=== PATIENT | male | born 1990 | race Caucasian/White ===

== ENCOUNTER 2017-11-09 13:01 | Emergency (ER) | payer OTHER ==
[~2017-11-09] VITALS: Ht 185.4 cm; Wt 108.9 kg
[2017-11-09 13:15] VITALS: BP 161/87
--- NOTE | 2017-11-09 13:20 | PCM.EKG ---
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
--- NOTE | 2017-11-09 13:22 | ER.PDOC ---
General Chief Complaint: Extremities Stated Complaint: HURT TOE Time seen by MD: 13:17 Source: patient Exam Limitations: no limitations History of Present Illness Initial Comments Right toe pain for weeks Severity: moderate Modifying Factors: pain on movement Allergies: Coded Allergies: No Known Allergies (Unverified , 11/09/17) Past Medical History Medical History: no pertinent history Surgical History: no surgical history Social History Smoking: chew Alcohol Use: occassionally Drug Use: none Review of Systems Constitutional: no symptoms reported EENTM: no symptoms reported Respiratory: no symptoms reported Cardiovascular: no symptoms reported Gastrointestinal: no symptoms reported Musculoskeletal: see HPI All Other Systems: Reviewed and Negative Physical Exam General Appearance: Alert, No Apparent Distress Foot: tenderness (right 1st ingrown toenail at the lateral aspect with discharge) Ankle: nml inspection, non-tender, nml ROM, no joint swelling, skin intact Gait: limited by pain Neuro: sensation nml, motor nml Vascular: no vascular compromise Tendons: tendon function nml Leg/Knee/Thigh: uninjured above ankle Head/ENT: nml inspection, pharynx nml Neck/Back: nml inspection, non-tender Resp/CVS: no resp distress Abdomen: non-tender, no organomegaly EKG/XRAY/CT/US EKG Comments: Normal Course Sepsis Screening Results: Posi: POSITIVE SEPSIS RISK Vitals & review Data Vital Sign - Last 24 Hours 11/09/17 11/09/17 11/09/17 13:10 13:10 13:15 Temp 98.7 98.7 98.7 Pulse 92 92 92 Resp 18 B/P (MAP) 161/87 (111) Pulse Ox 98 98 O2 Delivery Room Air Room Air Departure Time of Disposition: 13:20 Disposition: 01 HOME, SELF-CARE Impression: Primary Impression: Ingrowing nail with infection Condition: Stable Additional Instructions: Bactrim DS Ibuprofen F/U with Dr. Gomez this week. Call for appointment. Duration or Time Spent with Pa: 20 mins GA ETIENNE MD Nov 09, 2017 13:22
[2017-11-09 13:27] VITALS: BP 161/87
== END 2017-11-09 13:25 | disposition home or self-care (01) ==
LOC: ER 13:01
DX: L60.0 Ingrowing nail (principal); F17.220 Nicotine dependence, chewing tobacco, uncomplicated
CPT/HCPCS: 93005; 99283

== ENCOUNTER 2018-01-21 11:45 | Emergency (ER) | payer OTHER ==
[~2018-01-21] VITALS: Ht 185.4 cm; Wt 113.4 kg
[2018-01-21 11:59] VITALS: BP 159/85
--- NOTE | 2018-01-21 11:59 | ER.PDOC ---
General Chief Complaint: Requesting Medical Care Stated Complaint: COUGH AND CONGESTION Time seen by MD: 11:52 Source: patient Exam Limitations: no limitations History of Present Illness Initial Comments Sore throat, cough and fever since Wednesday, hurts when coughing Timing/Duration: gradual Severity: moderate Associated Symptoms: fever/chills, sore throat, cough Allergies: Coded Allergies: No Known Allergies (Unverified , 11/09/17) EENTM: see HPI Respiratory: see HPI All Other Systems: Reviewed and Negative Past Medical History Surgical History: no surgical history Social History Drug Use: none Physical Exam General Appearance: alert, no distress Eye: eyes nml inspection, lids & conjunct. nml, PERRL, no nystagmus Ear: ear nml Nose: nose nml Throat: pharyngeal erythema, tonsillar edudate, tonsillar swelling Neck: nml inspection, supple Respiratory: no resp.distress, breath sounds nml Abdomen: non-tender, no organomegaly CVS: reg rate & rhythm, heart sounds nml Skin: color nml, no rash, warm/dry Extremities: non-tender, nml ROM, no pedal edema NEURO/PSYCH: oriented x 3, CN's nml as tested, motor nml, sensation nml, mood/ affect nml Results/Orders Results/Orders Laboratory Tests Test 01/21/18 12:00 Group A Streptococcus Screen NEGATIVE (NEGATIVE) Departure Time of Disposition: 12:17 Disposition: 01 HOME, SELF-CARE Impression: Primary Impression: Upper respiratory infection Additional Impressions: Bronchitis Pharyngitis Condition: Stable Patient Instructions: Upper Respiratory Infection, Adult, [id number] Referrals: PCP,UNKNOWN (PCP) PRIMARY CARE PROVIDER Duration or Time Spent with Pa: LULU CHIN MD Jan 21, 2018 11:59
[2018-01-21 12:57] VITALS: BP 159/85
== END 2018-01-21 12:23 | disposition home or self-care (01) ==
LOC: ER 11:45
DX: J02.9 Acute pharyngitis, unspecified (principal); J40 Bronchitis, not specified as acute or chronic
CPT/HCPCS: 87070; 87880; 99284